=== PATIENT | female | born 1960 | race Caucasian/White ===

== ENCOUNTER 2024-09-05 13:49 | Outpatient (RCR) | payer OTHER, SELFPAY ==
--- NOTE | 2024-09-05 15:21 | PT.OPE ---
[facility] Start: 09/05/24 13:00 Freq: Status: Active Protocol: Document 09/05/24 15:15 CURTIST (Rec: 09/05/24 15:16 CURTIST [id number]) E-signed By Quirino Vilchis PT Physical Therapy Outpatient Evaluation Insurance Information Recert Due Date 12/04/24 Insurance Name Other; See Comments Insurance Information/Comments [employer] Medical Diagnosis M75.102 - Unspecified rotator cuff tear or rupture of left shoulder, not specified as traumatic M75.81 - Other shoulder lesions, right shoulder Treating Diagnosis R shoulder pain L shoulder pain Referring Eros Howell MD Subjective Preferred Name Ronda Subjective Pt presents with bilateral shoulder pain. Around [place] she was setting up her [place] tree. Needed to move her TV cabinet. Pt reports she was trying to lift the TV cabinet from the bottom and felt immediate onset of pain in B shoulders ( R worse than L). Had to set the cabinet down immediately due to pain. She is having trouble sleeping as laying on her back causes B shoulders to burn. She has been attempting to sleep at an incline and struggling to sleep more than 2 hours a night. The patient has tried ice, Tylenol/oral NSAIDs, rest, activity modification all with minimal and non-lasting relief. Her pain is worse with pulling up her pants, lifting, reaching, elevation, reaching behind her . Pt was scheduled for MRI of L shoulder but cancelled this appointment as it required a $ 200 co-pay which she cannot afford. Pain Comments 06/27 Current Work Status Retired Precautions Therapy Limitations/Systems Review Not Limited Objective Other/Pertinent Objective Cervical ROM Extension - 44 Flexion - 46 R/L Side Bend - 32/34 R/L Rotation - 50/67 R Shoulder ROM Elevation: 115 ER: 75 IR: L2 L Shoulder ROM Elevation: 80 ER: 75 IR: unable due to pain R Shoulder Strength - unable to assess due to pain L Shoulder Strength - unable to assess due to pain Palpation: pt reports tenderness/pain with palpation to B UT, levator, pec major, LHBT, L>R biceps mm belly Functional Test Performed & Score QuickDASH: 84% disability Assessment Assessment/Impression Ronda is a very pleasant 64 year old female who presents to our clinic for evaluation and treatment of B shoulder pain. Pt presents with deficits in L>R shoulder ROM. Strength testing was not able to be completed due to pts high level of pain which she graded as 10/10. Passively, her shoulders both appear to have full motion and is pain free while pt is able to maintain relaxation throughout the range. I am concerned for Ronda as she cancelled her MRI for her L shoulder because she cannot afford the $200 co -pay for this service. I asked that she call her insurance to get more details and she agrees. It does seem that pts pain is primarily stemming from strain to L>R biceps although RTC involvement was difficult to assess today due to pain. The nature of the pts condition was explained and all questions were answered to the pts satisfaction. Skilled PT services are medically necessary to address deficits and return patient to highest level of function. Recommend physical therapy sessions 1/ week for 4 weeks. Pt agrees with this plan. Printout of HEP was given for I completion and pt gives verbal understanding of each exercise . Primary Functional Limitations Lifting reaching, carrying, pulling up pants Plan of Care Rehabilitation Potential Fair Physical Therapy Goals STG - To be completed in 2-3 weeks: 1. Pt will demonstrate improved shoulder elevation by 10+ degrees bilaterally so that they may reach for cans of soup on top shelf in pantry . 2. Pt will report reduction in shoulder pain by factor of 2 so that they may sleep without waking due to pain while shifting position in the night . 3. Pt will report ability to pull up her pants with max 2/ 10 pain so that she may dress in the morning with tolerable level of pain. LTG - To be completed in 6-8 weeks: 1. Pt to be I with HEP so that they may I manage progression of symptoms. 2. Pt will report ability to lay on either shoulder in bed without increase in pain so that they may sleep in preferred position to achieve better night's sleep. 3. Pt will demo full and pain free shoulder ROM and strength so that they may return to recreational exercise with their friends. Treatment Plan/Direct Interventions Electrical Stimulation,Heat, Ice/Cold/Vasopneumatic,Joint Mobilization,Manual Therapy, Neuromuscular Re-ed,Self-Care/ Home Management,Therapeutic Activities,Therapeutic Exercises,Ultrasound Frequency/Duration 1/week for 4 weeks Patient Will Be Discharged From Therapy Completion of LTG(s),Skills Plateau,Independent w/HEP, Independently Progressing Evaluation Billing Untimed Code Treatment Minutes 40 PT Eval No Charge No Complexity Low Certification Information Initial Certification Date 09/05/24 Ending Certification Date 12/04/24 Provider Signature Required Yes Provider Signature Shows Agreement With POC & Medical Necessity Physician NPI Number Write NPI# Here Physician Comment/Change : Physician Signature & Date Requested Please Sign/Date Here Dr. Uribe, please sign this note and disregard previous. This evaluation includes pts QuickDASH score. My apologies for the extra note. Quirino Vilchis, PT, DPT
== END 2025-01-03 23:59 | disposition home or self-care (01) ==
PROVIDERS: Visit Provider Orthopaedic Surgery Sports Medicine
DX: M75.102 Unspecified rotator cuff tear or rupture of left shoulder, not specified as traumatic (principal); M75.81 Other shoulder lesions, right shoulder; Z51.89 Encounter for other specified aftercare
CPT/HCPCS: 97140; 97161

== ENCOUNTER 2024-09-25 12:19 | Outpatient (CLI) | payer OTHER, SELFPAY | END 2024-09-25 12:20 | disposition home or self-care (01) | LOC: LKVREF 12:21 | PROVIDERS: Visit Provider Physician Assistant | DX: M25.572 Pain in left ankle and joints of left foot (principal) | CPT/HCPCS: 84550 ==

== ENCOUNTER 2024-12-17 11:18 | Outpatient (CLI) | payer OTHER, SELFPAY ==
[2024-12-17 22:43] LABS: Albumin* 4.6 g/dL (3.3-5.0)
[2024-12-17 22:46] LABS: Alanine Aminotransferase* 13 U/L (4-35); Alkaline Phosphatase* 66 U/L (40-150); Amylase* 82 U/L (18-89); Aspartate Amino Transferase* 25 U/L (12-35); Bilirubin Direct* 0.4 mg/dL (0.0-0.5); Bilirubin Total* 0.5 mg/dL (0.1-1.5); Total Protein* 8.1 g/dL (6.0-8.3)
[2024-12-17 23:13] LABS: Basophils Absolute Auto 0.04 K/uL (0.00-0.30); Basophils Percent Auto 0.5 % (0.0-3.0); Eosinophils Absolute Auto 0.09 K/uL (0.00-0.50); Eosinophils Percent Auto 1.1 % (0.0-7.0); Hematocrit 40.4 % (33.0-51.0); Hemoglobin* 13.1 gm/dL (12.0-16.0); Immature Granulocytes Abs Auto 0.04 K/uL (0.00-0.30); Immature Granulocytes Pct Auto 0.5 %; Lymphocytes Absolute Auto 2.28 K/uL (0.90-2.90); Lymphocytes Percent Auto 28.8 % (20-44); Mean Corpuscular HGB Conc 32 gm/dL (32-36); Mean Corpuscular Hemoglobin 31 pg (26-34); Mean Corpuscular Volume 96 fL (80-100); Monocytes Percent Auto 7.2 % (0.0-11.0); Neutrophils Absolute Auto 4.89 K/uL (1.7-7.0); Neutrophils Percent Auto 61.9 % (42.0-72.0); Platelet Count* 260 K/uL (140-440); RDW Coefficient of Variation % 13.3 % (11.5-15.5); Red Blood Count 4.23 m/uL (4.00-5.20); White Blood Count* 7.91 K/uL (4.50-11.00)
[2024-12-17 23:33] LABS: Slide Review Reflex No
[2024-12-20 01:53] LABS: Valproic Acid, Free 17 ug/mL (7-23); Valproic Acid, Percent Free 21 % (5-18); Valproic Acid, Total 82 ug/mL (50-125)
== END 2024-12-17 11:19 | disposition home or self-care (01) ==
LOC: NPINS 11:19
PROVIDERS: PCP Emergency Medicine; Visit Provider Nurse Practitioner Psychiatric/Mental Health
DX: F31.10 Bipolar disorder, current episode manic without psychotic features, unspecified (principal); E78.5 Hyperlipidemia, unspecified
CPT/HCPCS: 80048; 80061; 80076; 80164; 80165; 82150; 82607; 84443; 85025

== ENCOUNTER 2024-12-17 11:37 | Outpatient (CLI) | payer OTHER, SELFPAY | END 2024-12-17 11:38 | disposition home or self-care (01) | LOC: NFLDREF 12-18 07:51 | PROVIDERS: PCP Emergency Medicine; Referring Provider Emergency Medicine; Visit Provider Nurse Practitioner Psychiatric/Mental Health | DX: R20.2 Paresthesia of skin (principal); R79.89 Other specified abnormal findings of blood chemistry; E78.5 Hyperlipidemia, unspecified; Z13.21 Encounter for screening for nutritional disorder; Z13.29 Encounter for screening for other suspected endocrine disorder | CPT/HCPCS: 80048; 80061; 82607; 84443 ==